=== PATIENT | female | born 1950 | race Caucasian/White ===

== ENCOUNTER 2021-06-04 08:30 | Inpatient (IN) | payer OTHER, BC ==
[2021-06-04 10:01] LABS: BASO % 0.9 % (0-2.0); EOS % 2.5 % (0-4.5); LYMPH % 17.5 % (8-40); MCH 20.1 pg (25.7-33.7); MCHC 30.4 g/dl (32.0-36.0); MEAN CELL VOLUME 66.2 fl (80-96); MEAN PLT VOLUME 7.7 fl (7.5-11.1); MONO % 7.4 % (3.8-10.2); NEUT % 71.7 % (42.8-82.8); PLATELET COUNT 461 10^3/uL (134-434); RBC 3.17 M/mm3 (3.60-5.2); RDW 19.7 % (11.6-15.6); WHITE BLOOD COUNT 8.1 K/mm3 (4.0-10.0)
[2021-06-04 10:08] LABS: INR 1.03 (0.83-1.09); PROTHROMBIN TIME (PATIENT) 11.8 SEC (9.7-13.0)
[2021-06-04 10:09] LABS: HEMOGLOBIN 6.4 GM/dL (10.7-15.3)
[2021-06-04 10:19] LABS: ALBUMIN 3.8 g/dl (3.4-5.0); BLOOD UREA NITROGEN 18.4 mg/dL (7-18); CALCIUM 9.4 mg/dL (8.5-10.1)
[2021-06-04 10:21] LABS: CREATININE 1.2 mg/dL (0.55-1.3)
[2021-06-04 10:24] LABS: BILIRUBIN,TOTAL 0.3 mg/dL (0.2-1); TOT PROT 6.6 g/dl (6.4-8.2)
[2021-06-04 11:26] LABS: ANISOCYTOSIS 2+; MACROCYTOSIS 0; OVALOCYTE 2+
[2021-06-04 11:48] LABS: MAGNESIUM 1.8 mg/dL (1.8-2.4)
[2021-06-04 11:52] LABS: PHOSPHOROUS 3.9 mg/dL (2.5-4.9)
[2021-06-04] MEDS ORDERED: NIFEdipine E.R. 30 MG TABLET ONE (18:29)
[2021-06-04] MEDS ORDERED: PANTOPRAZOLE SODIUM 40 MG/100 ML BAG IVPB ONE (18:30)
[2021-06-04] MEDS: NIFEdipine E.R. 90 MG TABLET PO SCH (18:47)
[2021-06-04] MEDS: PANTOPRAZOLE SODIUM 40 MG VIAL IVPUSH SCH (18:47)
[2021-06-04] MEDS: INSULIN SLIDING SCALE (NOVOLOG) 1 VIAL SQ SCH (18:47)
[2021-06-04] MEDS: ATORVASTATIN CA 20 MG TABLET (FP) PO SCH (22:41)
[2021-06-04] MEDS: hydrALAZINE HCL 50 MG TABLET (FP) PO SCH (22:41)
[2021-06-04 23:08] VITALS: BMI 32.4
[2021-06-05] MEDS: INSULIN SLIDING SCALE (NOVOLOG) 1 VIAL SQ SCH ×3 (06:51→17:45)
[2021-06-05 08:08] LABS: EOS % 3.5 % (0-4.5); HEMATOCRIT 24.3 % (32.4-45.2); HEMOGLOBIN 7.5 GM/dL (10.7-15.3); LYMPH % 15.8 % (8-40); MCH 20.9 pg (25.7-33.7); MEAN CELL VOLUME 67.5 fl (80-96); MEAN PLT VOLUME 7.9 fl (7.5-11.1); MONO % 8.7 % (3.8-10.2); PLATELET COUNT 397 10^3/uL (134-434); RDW 21.6 % (11.6-15.6); WHITE BLOOD COUNT 7.5 K/mm3 (4.0-10.0)
[2021-06-05 08:19] LABS: BLOOD UREA NITROGEN 16.3 mg/dL (7-18)
[2021-06-05 08:22] LABS: CREATININE 1.1 mg/dL (0.55-1.3)
[2021-06-05] MEDS ORDERED: FUROSEMIDE 20 MG TABLET (FP) PO SCH (10:00)
[2021-06-05] MEDS ORDERED: IRON SUCROSE INJECTION 200 MG in SODIUM CHLORIDE 90 ML IVPB ONE (11:30)
[2021-06-05] MEDS: LOSARTAN POTASSIUM 50 MG TABLET PO SCH (11:35)
[2021-06-05] MEDS: FUROSEMIDE 20 MG TABLET (FP) PO SCH (11:35)
[2021-06-05] MEDS: NIFEdipine E.R. 90 MG TABLET PO SCH (11:36)
[2021-06-05] MEDS: PANTOPRAZOLE SODIUM 40 MG VIAL IVPUSH SCH (11:36)
[2021-06-05] MEDS: hydrALAZINE HCL 50 MG TABLET (FP) PO SCH ×2 (11:36→21:09)
[2021-06-05] MEDS: ATORVASTATIN CA 20 MG TABLET (FP) PO SCH (21:09)
[2021-06-06] MEDS: INSULIN SLIDING SCALE (NOVOLOG) 1 VIAL SQ SCH ×3 (06:06→17:42)
[2021-06-06 09:30] LABS: HEMATOCRIT 28.5 % (32.4-45.2); HEMOGLOBIN 9.2 GM/dL (10.7-15.3); MCHC 32.4 g/dl (32.0-36.0); MEAN CELL VOLUME 68.1 fl (80-96); MEAN PLT VOLUME 8.3 fl (7.5-11.1); PLATELET COUNT 420 10^3/uL (134-434); RBC 4.18 M/mm3 (3.60-5.2); RDW 22.1 % (11.6-15.6); WHITE BLOOD COUNT 8.9 K/mm3 (4.0-10.0)
[2021-06-06 09:48] LABS: CALCIUM 9.3 mg/dL (8.5-10.1)
[2021-06-06 09:49] LABS: ALBUMIN 3.7 g/dl (3.4-5.0); BLOOD UREA NITROGEN 15.5 mg/dL (7-18)
[2021-06-06 09:51] LABS: PHOSPHOROUS 4.8 mg/dL (2.5-4.9)
[2021-06-06 09:52] LABS: CREATININE 1.1 mg/dL (0.55-1.3)
[2021-06-06 09:54] LABS: BILIRUBIN,TOTAL 0.8 mg/dL (0.2-1); TOT PROT 6.6 g/dl (6.4-8.2)
[2021-06-06] MEDS ORDERED: EPINEPHrine 1:10,000 (P-F SYR) 1 MG/10 ML DISP.SYRIN ONE (11:12)
[2021-06-06] MEDS: PANTOPRAZOLE SODIUM 40 MG VIAL IVPUSH SCH (12:50)
[2021-06-06] MEDS: NIFEdipine E.R. 90 MG TABLET PO SCH (12:50)
[2021-06-06] MEDS: FUROSEMIDE 20 MG TABLET (FP) PO SCH (12:51)
[2021-06-06] MEDS: LOSARTAN POTASSIUM 50 MG TABLET PO SCH (12:51)
[2021-06-06] MEDS: hydrALAZINE HCL 50 MG TABLET (FP) PO SCH ×2 (12:51→21:47)
[2021-06-06] MEDS ORDERED: BISACODYL 5 MG TABLET.DR (FP) PO ONE ×2 (16:00→16:30)
[2021-06-06] MEDS ORDERED: PEG 3350/NA SULF BICARB CL/KCL 4000 ML SOLN.RECON PO ONE (17:00)
[2021-06-06] MEDS: ATORVASTATIN CA 20 MG TABLET (FP) PO SCH (21:47)
[2021-06-07] MEDS: INSULIN SLIDING SCALE (NOVOLOG) 1 VIAL SQ SCH ×3 (06:03→16:33)
[2021-06-07] MEDS: NIFEdipine E.R. 90 MG TABLET PO SCH (09:36)
[2021-06-07] MEDS: hydrALAZINE HCL 50 MG TABLET (FP) PO SCH (09:36)
[2021-06-07] MEDS: LOSARTAN POTASSIUM 50 MG TABLET PO SCH (09:36)
[2021-06-07 09:53] LABS: BASO % 0.8 % (0-2.0); EOS % 4.1 % (0-4.5); HEMATOCRIT 29.4 % (32.4-45.2); HEMOGLOBIN 9.5 GM/dL (10.7-15.3); LYMPH % 15.1 % (8-40); MCHC 32.4 g/dl (32.0-36.0); MEAN PLT VOLUME 7.8 fl (7.5-11.1); MONO % 8.6 % (3.8-10.2); NEUT % 71.4 % (42.8-82.8); PLATELET COUNT 414 10^3/uL (134-434); RBC 4.32 M/mm3 (3.60-5.2); RDW 21.9 % (11.6-15.6); WHITE BLOOD COUNT 8.5 K/mm3 (4.0-10.0)
[2021-06-07] MEDS ORDERED: FUROSEMIDE 40 MG TABLET (FP) PO SCH (10:00)
[2021-06-07 10:22] LABS: CALCIUM 8.8 mg/dL (8.5-10.1)
[2021-06-07 10:23] LABS: BLOOD UREA NITROGEN 14.7 mg/dL (7-18)
[2021-06-07 10:26] LABS: CREATININE 1.1 mg/dL (0.55-1.3)
[2021-06-07] MEDS ORDERED: EPINEPHrine 1:10,000 (P-F SYR) 1 MG/10 ML DISP.SYRIN ONE (10:59)
[2021-06-07] MEDS ORDERED: EPINEPHrine 1:10,000 (P-F SYR) 1 MG/10 ML DISP.SYRIN IVPUSH ONE (11:20)
[2021-06-07] MEDS ORDERED: ACETAMINOPHEN 325 MG TABLET (FP) PO PRN (13:07)
[2021-06-07 14:09] VITALS: BP 140/57; PULSE 74; TEMP 98.3
== END 2021-06-07 18:00 | disposition home or self-care (01) | DRG 378 ==
LOC: JER 08:30 → JERBED 10:22 → OBSVTOIN 11:02 → J7W 21:30
PROVIDERS: ADMIT Internal Medicine; ATTEND Internal Medicine
PROC: 30233N1 Transfusion of Nonautologous Red Blood Cells into Peripheral Vein, Percutaneous Approach (ICD-10-PCS; principal; 2021-06-04)
PROC: 0DB98ZX Excision of Duodenum, Via Natural or Artificial Opening Endoscopic, Diagnostic (ICD-10-PCS; 2021-06-06)
PROC: 0DBN8ZX Excision of Sigmoid Colon, Via Natural or Artificial Opening Endoscopic, Diagnostic (ICD-10-PCS; 2021-06-07)
PROC: 3E0H8GC Introduction of Other Therapeutic Substance into Lower GI, Via Natural or Artificial Opening Endoscopic (ICD-10-PCS; 2021-06-07)
DX: K57.31 Diverticulosis of large intestine without perforation or abscess with bleeding (principal); D62 Acute posthemorrhagic anemia; K63.3 Ulcer of intestine; D50.9 Iron deficiency anemia, unspecified; K29.51 Unspecified chronic gastritis with bleeding; B96.81 Helicobacter pylori [H. pylori] as the cause of diseases classified elsewhere; K52.89 Other specified noninfective gastroenteritis and colitis; E11.9 Type 2 diabetes mellitus without complications; I12.9 Hypertensive chronic kidney disease with stage 1 through stage 4 chronic kidney disease, or unspecified chronic kidney disease; E11.22 Type 2 diabetes mellitus with diabetic chronic kidney disease; N18.30 Chronic kidney disease, stage 3 unspecified; E78.5 Hyperlipidemia, unspecified; D12.5 Benign neoplasm of sigmoid colon; K64.8 Other hemorrhoids
CPT/HCPCS: 36415; 36430; 80048; 80053; 82272; 82607; 82728; 82962; 83540; 83550; 83735; 84100; 84443; 85025; 85027; 85610; 85730; 86850; 86900; 86901; 86922; 88305-TC; 88342-TC; 93005; 93010; 99285-25; C9803; G0378; P9058; U0003; U0005

== ENCOUNTER 2023-05-15 11:52 | Inpatient (IN) | payer OTHER, BC ==
[2023-05-15 13:44] LABS: BASO % 0.8 % (0-2.0); EOS % 0.3 % (0-4.5); LYMPH % 9.8 % (8-40); MCHC 29.5 g/dl (32.0-36.0); MEAN CELL VOLUME 60.2 fl (80-96); MEAN PLT VOLUME 6.9 fl (7.5-11.1); MONO % 8.7 % (3.8-10.2); NEUT % 80.4 % (42.8-82.8); PLATELET COUNT 637 10^3/uL (134-434); RBC 3.15 M/mm3 (3.60-5.2); RDW 18.7 % (11.6-15.6); WHITE BLOOD COUNT 11.3 K/mm3 (4.0-10.0)
[2023-05-15 13:48] LABS: MCH 17.7 pg (25.7-33.7)
[2023-05-15 13:53] LABS: HEMOGLOBIN 5.6 GM/dL (10.7-15.3)
[2023-05-15 14:01] LABS: POTASSIUM 3.2 mmol/L (3.5-5.1)
[2023-05-15 14:03] LABS: CALCIUM 8.8 mg/dL (8.5-10.1)
[2023-05-15 14:04] LABS: ALBUMIN 2.7 g/dl (3.4-5.0); BLOOD UREA NITROGEN 25.5 mg/dL (7-18)
[2023-05-15 14:07] LABS: CREATININE 1.6 mg/dL (0.55-1.3)
[2023-05-15 14:09] LABS: BILIRUBIN,TOTAL 0.3 mg/dL (0.2-1); TOT PROT 6.7 g/dl (6.4-8.2)
[2023-05-15 14:12] LABS: N-TERMINAL BNP 3388.1 pg/ml (5-125)
[2023-05-15 14:16] LABS: ANISOCYTOSIS 1+; MACROCYTOSIS 1+; OVALOCYTE 2+
[2023-05-15 14:38] LABS: IRON SERUM 10 ug/dL (50-175)
[2023-05-15 14:40] LABS: TOTAL IRON BINDING CAPACITY 355 ug/dL (250-450)
[2023-05-15 16:11] LABS: INR 1.19 (0.83-1.09); PROTHROMBIN TIME (PATIENT) 13.8 SEC (9.7-13.0)
[2023-05-15 16:14] LABS: ACTIVATED PTT 29.9 SECONDS (25.2-36.5)
[2023-05-15 22:00] LABS: CHOLESTEROL 145 mg/dL (50-200)
[2023-05-15 22:02] LABS: LDL CHOLESTEROL (ONLY SJRH) 83 mg/dL (5-100)
[2023-05-15 22:03] LABS: HDL CHOLESTEROL 46 mg/dL (40-60)
[2023-05-15] MEDS ORDERED: hydrALAZINE HCL 50 MG TABLET (FP) ONE (22:20)
[2023-05-15] MEDS ORDERED: ATORVASTATIN CA 20 MG TABLET (FP) ONE (22:20)
[2023-05-15] MEDS ORDERED: INSULIN (NOVOLOG) ASPART 100 UNITS/ML 10ML VIAL ONE (22:28)
[2023-05-15] MEDS: INSULIN ASPART SLIDING SCALE (NOVOLOG) 1 VIAL SQ SCH (22:34)
[2023-05-15] MEDS: hydrALAZINE HCL 50 MG TABLET (FP) PO SCH (22:34)
[2023-05-15] MEDS: ATORVASTATIN CA 20 MG TABLET (FP) PO SCH (22:34)
[2023-05-16] MEDS: glipiZIDE-XL 2.5 MG TAB.ER.24 PO SCH (06:59)
[2023-05-16 08:36] VITALS: BMI 34.8
[2023-05-16 08:57] LABS: BASO % 0.3 % (0-2.0); EOS % 0.5 % (0-4.5); HEMOGLOBIN 7.8 GM/dL (10.7-15.3); LYMPH % 6.9 % (8-40); MCH 20.1 pg (25.7-33.7); MCHC 31.1 g/dl (32.0-36.0); MEAN CELL VOLUME 64.7 fl (80-96); MEAN PLT VOLUME 7.6 fl (7.5-11.1); MONO % 9.7 % (3.8-10.2); NEUT % 82.6 % (42.8-82.8); PLATELET COUNT 647 10^3/uL (134-434); RBC 3.87 M/mm3 (3.60-5.2); RDW 23.4 % (11.6-15.6); WHITE BLOOD COUNT 12.2 K/mm3 (4.0-10.0)
[2023-05-16 09:20] LABS: POTASSIUM 3.1 mmol/L (3.5-5.1)
[2023-05-16 09:25] LABS: CALCIUM 8.6 mg/dL (8.5-10.1)
[2023-05-16 09:26] LABS: ALBUMIN 2.7 g/dl (3.4-5.0); MAGNESIUM 2.2 mg/dL (1.8-2.4)
[2023-05-16 09:29] LABS: CREATININE 1.4 mg/dL (0.55-1.3); PHOSPHOROUS 3.9 mg/dL (2.5-4.9)
[2023-05-16 09:30] LABS: BILIRUBIN,TOTAL 0.5 mg/dL (0.2-1); TOT PROT 6.4 g/dl (6.4-8.2)
[2023-05-16 09:30] LABS: IRON SERUM 12 ug/dL (50-175); TOTAL IRON BINDING CAPACITY 345 ug/dL (250-450)
[2023-05-16] MEDS: FUROSEMIDE 20 MG TABLET (FP) PO SCH (09:33)
[2023-05-16] MEDS: LOSARTAN POTASSIUM 50 MG TABLET PO SCH (09:34)
[2023-05-16] MEDS: NIFEdipine E.R. 90 MG TABLET PO SCH (09:34)
[2023-05-16] MEDS: ASPIRIN 81 MG CHEWABLE TABLETS PO SCH (09:44)
[2023-05-16] MEDS: POTASSIUM CHLORIDE ORAL LIQUID 20 MEQ/15 ML PO ONE (11:08)
[2023-05-16] MEDS: KCL 10 MEQ IVPB 10 MEQ/100 ML INFUS.BAG IVPB SCH (11:09)
[2023-05-16] MEDS ORDERED: INSULIN (NOVOLOG) ASPART 100 UNITS/ML 10ML VIAL ONE ×2 (11:27→19:02)
[2023-05-16 12:52] LABS: EPI CELLS 18 /uL (0-25.1); HYALINE CASTS 1 /uL (0-3.1); PH,URINE 5.5 (5.0-8.0); URINE APPEARANCE CLEAR; URINE BACTERIA 8 /uL (0-1359); URINE BILIRUBIN NEGATIVE (NEGATIVE); URINE COLOR YELLOW; URINE GLUCOSE (UA) NEGATIVE (NEGATIVE); URINE KETONE NEGATIVE (NEGATIVE); URINE LEUK ESTERASE 1+ (NEGATIVE); URINE NITRITE NEGATIVE (NEGATIVE); URINE PROTEIN 1+ (NEGATIVE); URINE RBC 13 /uL (0-23.9); URINE UROBILINOGEN 0.2 mg/dL (0.2-1.0); URINE WBC 94 /uL (0-25.8)
[2023-05-16] MEDS: PANTOPRAZOLE 40 MG TABLET PO SCH (14:17)
[2023-05-16] MEDS: FUROSEMIDE 40 MG/4 ML INJECTABLE VIAL IVPUSH ONE ×2 (15:24→15:32)
[2023-05-16] MEDS: traMADol HCL 50 MG TABLET PO PRN (15:34)
[2023-05-16] MEDS: IRON SUCROSE INJECTION 200 MG in SODIUM CHLORIDE 90 ML IVPB ONE (16:36)
[2023-05-16] MEDS: KCL 20 MEQ PREMIX BAG 20 MEQ/100 ML INFUS.BAG IVPB SCH (16:37)
[2023-05-17 08:34] LABS: BASO % 0.6 % (0-2.0); EOS % 1.6 % (0-4.5); HEMATOCRIT 24.1 % (32.4-45.2); HEMOGLOBIN 7.7 GM/dL (10.7-15.3); LYMPH % 8.4 % (8-40); MCH 20.6 pg (25.7-33.7); MCHC 31.8 g/dl (32.0-36.0); MEAN CELL VOLUME 64.7 fl (80-96); MEAN PLT VOLUME 7.3 fl (7.5-11.1); MONO % 9.9 % (3.8-10.2); NEUT % 79.5 % (42.8-82.8); PLATELET COUNT 651 10^3/uL (134-434); RBC 3.72 M/mm3 (3.60-5.2); RDW 22.8 % (11.6-15.6); WHITE BLOOD COUNT 12.5 K/mm3 (4.0-10.0)
[2023-05-17 08:38] LABS: INR 1.24 (0.83-1.09); PROTHROMBIN TIME (PATIENT) 14.4 SEC (9.7-13.0)
[2023-05-17 08:52] LABS: POTASSIUM 3.5 mmol/L (3.5-5.1)
[2023-05-17 08:56] LABS: CALCIUM 8.6 mg/dL (8.5-10.1)
[2023-05-17 08:58] LABS: BLOOD UREA NITROGEN 21.9 mg/dL (7-18)
[2023-05-17 09:00] LABS: CREATININE 1.5 mg/dL (0.55-1.3)
[2023-05-17] MEDS: IRON SUCROSE INJECTION 200 MG in SODIUM CHLORIDE 90 ML IVPB ONE (11:00)
[2023-05-17] MEDS ORDERED: INSULIN (NOVOLOG) ASPART 100 UNITS/ML 10ML VIAL ONE (11:16)
[2023-05-17] MEDS: FUROSEMIDE 40 MG/4 ML INJECTABLE VIAL IVPUSH ONE (13:37)
[2023-05-17] MEDS: POTASSIUM CHLORIDE ORAL LIQUID 20 MEQ/15 ML PO ONE ×2 (13:37→17:27)
[2023-05-17 21:06] LABS: ANTIGLOMERULAR BASEMENT MEN.AB <0.2 units (0.0-0.9)
[2023-05-18 09:06] LABS: BASO % 0.5 % (0-2.0); EOS % 2.6 % (0-4.5); HEMATOCRIT 22.3 % (32.4-45.2); LYMPH % 9.1 % (8-40); MCH 20.5 pg (25.7-33.7); MCHC 31.4 g/dl (32.0-36.0); MEAN CELL VOLUME 65.3 fl (80-96); MEAN PLT VOLUME 7.4 fl (7.5-11.1); MONO % 10.5 % (3.8-10.2); NEUT % 77.3 % (42.8-82.8); PLATELET COUNT 604 10^3/uL (134-434); RBC 3.42 M/mm3 (3.60-5.2); RDW 23.4 % (11.6-15.6); WHITE BLOOD COUNT 10.7 K/mm3 (4.0-10.0)
[2023-05-18 09:12] LABS: INR 1.24 (0.83-1.09); PROTHROMBIN TIME (PATIENT) 14.3 SEC (9.7-13.0)
[2023-05-18 09:27] LABS: POTASSIUM 3.5 mmol/L (3.5-5.1)
[2023-05-18 09:29] LABS: BLOOD UREA NITROGEN 23.3 mg/dL (7-18)
[2023-05-18 09:33] LABS: CREATININE 1.5 mg/dL (0.55-1.3)
[2023-05-18] MEDS: FUROSEMIDE 40 MG/4 ML INJECTABLE VIAL IVPUSH SCH ×2 (12:13→17:56)
[2023-05-18] MEDS: POTASSIUM CHLORIDE TABS 10 MEQ TABLET.ER (FP) PO SCH (12:14)
[2023-05-18] MEDS: IRON SUCROSE INJECTION 200 MG in SODIUM CHLORIDE 90 ML IVPB ONE (12:14)
[2023-05-18 17:10] LABS: ATYPICAL pANCA <1:20 titer (Neg:<1:20); C-ANCA <1:20 titer (Neg:<1:20)
[2023-05-18] MEDS: POTASSIUM CHLORIDE ORAL LIQUID 20 MEQ/15 ML PO ONE ×2 (17:56→17:58)
[2023-05-19] MEDS: POLYETHYLENE GLYCOL (HEALTHYLAX) 3350 17 GM PACKET PO ONE (12:51)
[2023-05-19] MEDS: POTASSIUM CHLORIDE ORAL LIQUID 20 MEQ/15 ML PO ONE (15:55)
[2023-05-20 09:13] LABS: HEMATOCRIT 26.4 % (32.4-45.2); HEMOGLOBIN 8.1 GM/dL (10.7-15.3); MCH 20.7 pg (25.7-33.7); MCHC 30.8 g/dl (32.0-36.0); MEAN CELL VOLUME 67.2 fl (80-96); MEAN PLT VOLUME 7.7 fl (7.5-11.1); PLATELET COUNT 660 10^3/uL (134-434); RBC 3.93 M/mm3 (3.60-5.2); RDW 25.3 % (11.6-15.6); WHITE BLOOD COUNT 13.1 K/mm3 (4.0-10.0)
[2023-05-20 09:51] LABS: ALBUMIN 2.8 g/dl (3.4-5.0); CALCIUM 8.6 mg/dL (8.5-10.1)
[2023-05-20 09:52] LABS: BLOOD UREA NITROGEN 33.1 mg/dL (7-18); MAGNESIUM 1.9 mg/dL (1.8-2.4)
[2023-05-20 09:54] LABS: CREATININE 1.7 mg/dL (0.55-1.3)
[2023-05-20 09:56] LABS: BILIRUBIN,TOTAL 0.4 mg/dL (0.2-1); TOT PROT 6.8 g/dl (6.4-8.2)
[2023-05-20] MEDS: PEG 3350/NA SULF BICARB CL/KCL 4000 ML SOLN.RECON PO ONE (17:13)
[2023-05-20] MEDS: BISACODYL 5 MG TABLET.DR (FP) PO ONE (18:59)
[2023-05-21] MEDS: FUROSEMIDE 40 MG/4 ML INJECTABLE VIAL IVPUSH SCH (10:56)
[2023-05-21 11:04] VITALS: RESP 18
[2023-05-21 18:04] LABS: EPI CELLS 15 /uL (0-25.1); HYALINE CASTS 1 /uL (0-3.1); PH,URINE 5.5 (5.0-8.0); URINE APPEARANCE CLEAR; URINE BACTERIA 64 /uL (0-1359); URINE BILIRUBIN NEGATIVE (NEGATIVE); URINE COLOR YELLOW; URINE GLUCOSE (UA) NEGATIVE (NEGATIVE); URINE KETONE NEGATIVE (NEGATIVE); URINE LEUK ESTERASE 2+ (NEGATIVE); URINE NITRITE NEGATIVE (NEGATIVE); URINE PROTEIN NEGATIVE (NEGATIVE); URINE RBC 12 /uL (0-23.9); URINE UROBILINOGEN 0.2 mg/dL (0.2-1.0); URINE WBC 70 /uL (0-25.8)
[2023-05-22 08:55] LABS: BASO % 0.4 % (0-2.0); EOS % 0.5 % (0-4.5); HEMATOCRIT 24.7 % (32.4-45.2); HEMOGLOBIN 7.5 GM/dL (10.7-15.3); LYMPH % 2.2 % (8-40); MCH 20.7 pg (25.7-33.7); MCHC 30.5 g/dl (32.0-36.0); MEAN CELL VOLUME 67.9 fl (80-96); MEAN PLT VOLUME 7.8 fl (7.5-11.1); MONO % 8.6 % (3.8-10.2); NEUT % 88.3 % (42.8-82.8); PLATELET COUNT 542 10^3/uL (134-434); RBC 3.64 M/mm3 (3.60-5.2); RDW 28.4 % (11.6-15.6); WHITE BLOOD COUNT 18.2 K/mm3 (4.0-10.0)
[2023-05-22 09:15] LABS: POTASSIUM 3.7 mmol/L (3.5-5.1)
[2023-05-22 09:17] LABS: CALCIUM 8.4 mg/dL (8.5-10.1)
[2023-05-22 09:18] LABS: BLOOD UREA NITROGEN 24.6 mg/dL (7-18)
[2023-05-22 09:21] LABS: CREATININE 1.4 mg/dL (0.55-1.3)
[2023-05-22] MEDS ORDERED: INSULIN ASPART SLIDING SCALE (NOVOLOG) 1 VIAL SQ ONE (10:40)
[2023-05-22 11:44] LABS: ANISOCYTOSIS 3+; MACROCYTOSIS 0
[2023-05-23] MEDS: NIFEdipine E.R 60 MG TABLET PO SCH (09:32)
[2023-05-23 09:55] LABS: HEMATOCRIT 25.2 % (32.4-45.2); HEMOGLOBIN 7.9 GM/dL (10.7-15.3); MCH 21.5 pg (25.7-33.7); MCHC 31.3 g/dl (32.0-36.0); MEAN CELL VOLUME 68.7 fl (80-96); MEAN PLT VOLUME 7.8 fl (7.5-11.1); PLATELET COUNT 559 10^3/uL (134-434); RBC 3.67 M/mm3 (3.60-5.2); RDW 29.1 % (11.6-15.6)
[2023-05-23 10:47] LABS: POTASSIUM 4.1 mmol/L (3.5-5.1)
[2023-05-23 10:56] LABS: BLOOD UREA NITROGEN 30.3 mg/dL (7-18)
[2023-05-23 10:59] LABS: CALCIUM 9.2 mg/dL (8.5-10.1); CREATININE 1.6 mg/dL (0.55-1.3)
[2023-05-23] MEDS ORDERED: INSULIN ASPART SLIDING SCALE (NOVOLOG) 1 VIAL SQ ONE (11:31)
[2023-05-23] MEDS ORDERED: NIFEdipine E.R. 30 MG TABLET PO SCH (12:38)
[2023-05-23 14:42] VITALS: BP 108/59; PULSE 84; TEMP 98.9
[2023-05-24] MEDS ORDERED: FUROSEMIDE 40 MG TABLET (FP) PO SCH (10:00)
== END 2023-05-23 17:16 | disposition home or self-care (01) | DRG 812 ==
LOC: JER 11:52 → JERBED 15:58 → OBSVTOIN 18:38 → J7W 05-16 06:17 → J6S 05-19 14:07
PROVIDERS: ADMIT Internal Medicine; ATTEND Internal Medicine
PROC: 30233N1 Transfusion of Nonautologous Red Blood Cells into Peripheral Vein, Percutaneous Approach (ICD-10-PCS; 2023-05-15)
PROC: 0DB78ZX Excision of Stomach, Pylorus, Via Natural or Artificial Opening Endoscopic, Diagnostic (ICD-10-PCS; 2023-05-18)
PROC: 0DB68ZX Excision of Stomach, Via Natural or Artificial Opening Endoscopic, Diagnostic (ICD-10-PCS; principal; 2023-05-18 10:00)
PROC: 0DJD8ZZ Inspection of Lower Intestinal Tract, Via Natural or Artificial Opening Endoscopic (ICD-10-PCS; 2023-05-21)
DX: D50.9 Iron deficiency anemia, unspecified (principal); N17.9 Acute kidney failure, unspecified; E11.22 Type 2 diabetes mellitus with diabetic chronic kidney disease; I12.9 Hypertensive chronic kidney disease with stage 1 through stage 4 chronic kidney disease, or unspecified chronic kidney disease; N18.30 Chronic kidney disease, stage 3 unspecified; K29.50 Unspecified chronic gastritis without bleeding; N28.1 Cyst of kidney, acquired; E88.09 Other disorders of plasma-protein metabolism, not elsewhere classified; K57.30 Diverticulosis of large intestine without perforation or abscess without bleeding; K64.8 Other hemorrhoids; R76.8 Other specified abnormal immunological findings in serum; R60.0 Localized edema; D75.839 Thrombocytosis, unspecified; Z79.84 Long term (current) use of oral hypoglycemic drugs
CPT/HCPCS: 0241U-QW; 36415; 36430; 71045-TC-FY; 76705-TC; 76775-TC; 80048; 80053; 80061; 81003; 82272; 82570; 82728; 82747; 82962; 83516; 83520; 83540; 83550; 83605; 83735; 83880; 84100; 84155; 84156; 84165; 84443; 84484; 85014; 85025; 85027; 85610; 85651; 85730; 86038; 86140; 86160; 86225; 86256; 86850; 86900; 86901; 86922; 87086; 88305-TC; 93005; 93010; 93306-TC; 93970-TC; 93971; 97116-GP; 97162-GP; 99285-25; G0378; J1756; P9058